=== PATIENT | female | born 1940 | race Caucasian/White ===

== ENCOUNTER 2019-04-15 10:04 | Outpatient (CLI) | payer MEDICARE ==
[~2019-04-15 10:04] MED LIST: Gadobenate Dimeglumine 529 MG/1 ML (20ML VIAL) ONE
--- NOTE | 2019-04-15 16:34 | MRI ---
MRI BRAIN WITH AND WITHOUT CONTRAST: DATE: 04/15/19 HISTORY: 78-year-old female with persistent headache and dizziness. TECHNIQUE: Multiple sequences obtained in axial, sagittal, and coronal planes; pre and post IV injection of gado linium-based contrast agent: 18 mL MultiHance. FINDINGS: The ventricles are normal in size and configuration. There is no restricted diffusion, abnormal intr aaxial enhancement, mass, midline shift or any other mass effect, recent intraaxial hemorrhage, or ex traaxial fluid collection. There is a mild-moderate degree of T2-hyperintensities in the cerebral whi te matter consistent with chronic ischemic white matter changes due to microvascular atherosclerosis, not unusual for age. IMPRESSION: 1. Mild-moderate chronic ischemic white matter changes. 2. Otherwise negative. jn[] POS: [facility]
== END 2019-04-15 10:05 | disposition home or self-care (01) ==
LOC: SCSMRI 10:04
PROVIDERS: ATTEND Family Medicine
DX: R51 Headache (principal)
CPT/HCPCS: 70553; 82565; A9577

== ENCOUNTER 2019-06-15 13:17 | Outpatient (CLI) | payer MEDICARE ==
--- NOTE | 2019-06-15 14:16 | MMO ---
Bilateral MAMMO Bilat Screen [facility]. CLINICAL HISTORY: Patient is 79 years old and is seen for screening. The patient has no family history of breast cancer. The patient has no personal history of cancer. VIEWS: The views performed were: bilateral craniocaudal with tomosynthesis and bilateral mediolateral oblique with tomosynthesis. FILMS COMPARED: The present examination has been compared to prior imaging studies performed at [facility] on 04/21/2013, and at [facility] on 12/24/2016. This study has been interpreted with the assistance of computer-aided detection. MAMMOGRAM FINDINGS: There are scattered fibroglandular densities. There are stable benign appearing calcifications seen in both breasts. There are also vascular calcifications. There are no suspicious masses, suspicious calcifications, or new areas of architectural distortion. IMPRESSION: THERE IS NO MAMMOGRAPHIC EVIDENCE OF MALIGNANCY. A ROUTINE FOLLOW-UP MAMMOGRAM IN 1 YEAR IS RECOMMENDED. THE RESULTS OF THIS EXAM WERE SENT TO THE PATIENT. ACR BI-RADS Category 2 - Benign finding MAMMOGRAPHY NOTE: 1. A negative mammogram report should not delay a biopsy if a dominant of clinically suspicious mass is present. 2. Approximately 10% to 15% of breast cancers are not detected by mammography. 3. Adenosis and dense breasts may obscure an underlying neoplasm. Reported by: PERLA SHERMAN MD Electonically Signed: [id number]
== END 2019-06-15 13:18 | disposition home or self-care (01) ==
LOC: BICMAMMO 13:17
PROVIDERS: ATTEND Family Medicine
DX: Z12.31 Encounter for screening mammogram for malignant neoplasm of breast (principal)
CPT/HCPCS: 77063; 77067

== ENCOUNTER 2019-09-20 12:40 | Outpatient (CLI) | payer MEDICARE ==
--- NOTE | 2019-09-20 14:22 | RAD ---
2 VIEW CHEST: Date: 09/20/2019 INDICATION: Cough. COMPARISON: 03/12/17. FINDINGS: The lungs appear clear of infiltrate. There are increased interstitial markings which appear stable. There is a nodular density in the left mid lung and a nodular density in the left upper lung which ap pear stable. Mild flattening of the hemidiaphragms is a stable finding. Heart size upper normal and s table. Postop sternotomy changes again noted. Osseous structures are unremarkable and stable. IMPRESSION: No acute process. Stable chest findings when compared to prior study. POS: [facility]
== END 2019-09-20 12:41 | disposition home or self-care (01) ==
LOC: RAD 12:40
PROVIDERS: ATTEND Nurse Practitioner Family
DX: R05 Cough (principal)
CPT/HCPCS: 71046

== ENCOUNTER 2019-09-21 07:33 | Inpatient (IN) | payer MEDICARE ==
[2019-09-21 07:59] LABS: #Basophils 0.1 thou/uL (0.0-0.2); #Eosinphils 0.4 thou/uL (0.0-0.7); #Lymphocytes 2.7 thou/uL (1.20-3.40); #Monocytes 1.4 thou/uL (0.11-0.59); #Neutrophils 6.5 thou/uL (1.40-6.50); %Basophils 0.8 % (0.0-1.0); %Eosinophils 3.8 % (0.0-10.0); %Lymphocytes 24.1 % (21.0-51.0); %Monocytes 12.4 % (0.0-10.0); %Neutrophils 58.9 % (42.0-75.0); Hemoglobin 13.3 g/dL (12.0-16.0); Mean Corpuscular HGB CONC 32.9 g/dL (32.0-36.0); Mean Corpuscular Hemoglobin 30.5 pg (27.0-31.0); Mean Corpuscular Volume 92.6 fL (78.0-98.0); Mean Platelet Volume 9.1 fL (7.4-10.4); Platelet Count 248 thou/uL (130-400); RBC Distribution Width 12.9 % (11.5-14.5); Red Blood Cell (RBC) Count 4.37 mill/uL (4.20-5.40)
--- NOTE | 2019-09-21 08:14 | RAD ---
EXAM: Single view of the chest HISTORY: Chest pain COMPARISON: 11/16/2013 FINDINGS: Single view of the chest shows an enlarged but stable cardiomediastinal silhouette. The pa tient is status post sternotomy. There is no evidence of consolidation, mass, or pleural effusion. The bones are unremarkable. IMPRESSION: No evidence of acute cardiopulmonary disease
[2019-09-21 08:23] LABS: ALT (SGPT) 10 U/L (8-55); AST (SGOT) 25 U/L (5-34); Alkaline Phosphatase 77 U/L (40-110); Anion Gap 14 mmol/L (10-20); BUN (Urea Nitrogen) 24 mg/dL (9.8-20.1); Bilirubin, Total 0.8 mg/dL (0.2-1.2); CK (CPK) 108 U/L (29-168); Calc. Creatinine Clearance 0 mL/min (70-130); Calcium 9.4 mg/dL (7.8-10.44); Carbon Dioxide 25 mmol/L (23-31); Chloride 106 mmol/L (98-107); Estimated GFR-MDRD 50; Globulin 3.6 g/dL (2.4-3.5); Glucose 188 mg/dL (83-110); Potassium 4.2 mmol/L (3.5-5.1); Protein, Total 7.6 g/dL (6.0-8.3); Sodium 141 mmol/L (136-145)
[2019-09-21] MEDS ORDERED: Nitroglycerin 2% Ointment 1 INCH/1 GM Packet ONE (09:51)
[2019-09-21] MEDS ORDERED: Aspirin Chewable 81 MG TAB ONE (09:51)
[2019-09-21] MEDS ORDERED: Enoxaparin Sodium 100 MG/ML SYRINGE ONE (10:33)
[2019-09-21 10:44] LABS: CKMB 3.7 ng/mL (0-6.6)
[2019-09-21] MEDS ORDERED: Enoxaparin Sodium 80 MG/0.8 ML SYRINGE ONE (10:49)
[2019-09-21 11:48] LABS: Troponin I 2.743 ng/mL (< 0.028)
[2019-09-21] MEDS ORDERED: Acetaminophen 650 MG Suppository PR PRN (14:48)
[2019-09-21] MEDS ORDERED: Morphine 2 MG/ML SYRINGE SLOW IVP PRN (14:48)
[2019-09-21] MEDS ORDERED: Ondansetron PF 4 MG/2 ML Vial IVP PRN (14:48)
[2019-09-21] MEDS ORDERED: Nitroglycerin 0.4 MG TAB (25 Tab Bottle) SL PRN (14:48)
[2019-09-21] MEDS ORDERED: Acetaminophen 325 MG TAB PO PRN (14:48)
[2019-09-21] MEDS ORDERED: Dextrose 5% in Water 1,000 ML IV PRN (14:51)
[2019-09-21] MEDS ORDERED: HumaLOG 300 UNITS/3 ML VIAL SC PRN (14:51)
[2019-09-21] MEDS ORDERED: Dextrose 50% Abboject 50 ML SYRINGE SLOW IVP PRN (14:51)
[2019-09-21 14:54] LABS: Troponin I 3.355 ng/mL (< 0.028)
--- NOTE | 2019-09-21 15:32 | HP ---
PRIMARY CARE PROVIDER: Lorna Matos MD CHIEF COMPLAINT: Chest pain. HISTORY OF PRESENT ILLNESS: Ms. García is a pleasant 79-year-old lady, who was seen at [facility] on September 21, 2019. She reports that towards the end of July, she was diagnosed with flu. She reports that her symptoms started three or four days prior to the diagnosis. She was treated with Tamiflu, but continued to have cough. She has also been having low energy levels. She reports that over the last week, she has had chest discomfort. She describes it as dull, heaviness across the chest, improved with nitrates, worse with exertion, not accompanied by nausea or lightheadedness. She reports that it radiated once to her back. She also reports shortness of breath on exertion and generalized weakness. She reports that she has not taken nitrates in 2 years prior to this episode. However, she found herself needing more nitrates as the days went by. Last night, she was woken up multiple times from sleep because of the chest discomfort. She was seen at her home performance laborer office yesterday. She had a chest x-ray done and was told that there was no pneumonia. She presented to the emergency room today because of the chest discomfort. REVIEW OF SYSTEMS: All systems were reviewed and found to be negative except for pertinent positives mentioned above. PAST MEDICAL HISTORY: Gastroesophageal reflux disease, diabetes mellitus, vertigo, dyslipidemia, and coronary artery disease. PAST SURGICAL HISTORY: PCI with coronary stents, coronary artery bypass graft, tubal ligation, cholecystectomy. PSYCHIATRIC HISTORY: Depression. FAMILY HISTORY: Significant for coronary artery disease in her father and brother. CODE STATUS: I discussed her code status. She is full code. SOCIAL HISTORY: The patient denies tobacco use, alcohol use, or recreational drug use. ALLERGIES: NO KNOWN DRUG ALLERGIES. CURRENT MEDICATIONS: 1. Januvia 100 mg daily. 2. Dicyclomine 20 mg daily as needed. 3. Amlodipine 5 mg daily. 4. Lisinopril 20 mg daily. 5. Metformin 500 mg 2 times a day. 6. Omeprazole 40 mg daily. 7. Aspirin 325 mg daily. PHYSICAL EXAMINATION: GENERAL: On examination, Ms. García is awake and alert, not in acute distress. VITAL SIGNS: Blood pressure is 126/80, pulse 84, respiratory rate 21, and oxygen saturation 100% on room air. She is afebrile. EYES: No scleral icterus, no conjunctival pallor. ENT: Moist mucosal membranes. No oropharyngeal erythema or exudates. NECK: Supple, nontender, trachea is midline. RESPIRATORY: Accessory muscles of breathing are not active. Chest wall movements are symmetric bilaterally. LUNGS: Clear to auscultation, without wheeze, rhonchi, or crepitations. CARDIOVASCULAR: S1 and S2 are heard, regular. Peripheral pulses palpable. ABDOMEN: Soft, nontender, bowel sounds are heard. NEUROLOGIC: Cranial nerves 2 through 12 are intact. MUSCULOSKELETAL: Power is 5/5 in all 4 extremities. SKIN: No rashes or subcutaneous nodules. LYMPHATIC: No cervical lymphadenopathy. PSYCHIATRIC: Normal mood, normal affect, the patient is oriented to person, place, and time. LABORATORY DATA: Ms. García' labs and investigations were reviewed. I reviewed her electrocardiogram, which shows normal sinus rhythm, lateral ST-segment depressions. I also reviewed her chest x-ray, which does not show any pulmonary infiltrates. She has 11,000 white cells, normal hemoglobin, normal platelet count, normal electrolytes, elevated blood urea nitrogen of 24, normal creatinine, and unremarkable LFTs. Troponin I is elevated at 2.743. BNP is elevated at 428. ASSESSMENT AND PLAN: Ms. García is a pleasant 79-year-old lady, who was seen at [facility] on September 21, 2019. Her problem list includes: 1. Iqu-ES-nvgvtdimg myocardial infarction: Ms. García is presenting with crt-XB-fsejyzrqw myocardial infarction. She will be admitted to the hospital for further management. Emergency room physician has discussed her case with home performance laborer on-call and she has been administered low-molecular weight heparin. I will admit her to tool filer. We will also check 2D echocardiogram to rule out viral cardiomyopathy as an etiology for elevated troponin, given her recent flu-like illness. However, her chest pain and its characteristics point more towards ischemic etiology. 2. Diabetes mellitus type 2: I will start her on Accu-Cheks and insulin sliding scale. We will continue her home medications once they are clarified. 3. Hypertension: We will resume home medications once clarified, we will monitor vital signs and titrate antihypertensives as needed. 4. Gastroesophageal reflux disease: Stable, continue PPI. 5. Dyslipidemia: The patient reports that she cannot tolerate statins. LEVEL OF RISK: High. LEVEL OF COMPLEXITY: High. Many thanks for allowing me to participate in your patient's care. Please feel free to contact me with any questions or concerns. Job ID: [id number]
[2019-09-21] MEDS ORDERED: Communication Order-Pharmacy FS SCH (17:00)
[2019-09-21 17:28] VITALS: BMI 34.1
[2019-09-21] MEDS ORDERED: Clopidogrel Bisulfate 300 MG TAB PO SCH (18:00)
[2019-09-21 18:24] LABS: Troponin I 3.491 ng/mL (< 0.028)
[2019-09-21] MEDS: Nitroglycerin 2% Ointment 1 INCH/1 GM Packet TOP SCH (20:00)
[2019-09-21] MEDS ORDERED: Enoxaparin Sodium 40 MG/0.4 ML SYRINGE SC SCH (21:00)
[2019-09-21] MEDS ORDERED: Enoxaparin Sodium 80 MG/0.8 ML SYRINGE SC SCH (21:00)
[2019-09-22 02:34] LABS: Critical Call Chem Troponin I RESULT DECREASING
[2019-09-22 02:51] LABS: CKMB 3.3 ng/mL (0-6.6)
[2019-09-22 04:19] LABS: #Basophils 0.1 thou/uL (0.0-0.2); #Eosinphils 0.4 thou/uL (0.0-0.7); #Lymphocytes 2.3 thou/uL (1.20-3.40); #Monocytes 1.2 thou/uL (0.11-0.59); #Neutrophils 4.8 thou/uL (1.40-6.50); %Basophils 1.1 % (0.0-1.0); %Eosinophils 4.8 % (0.0-10.0); %Lymphocytes 26.1 % (21.0-51.0); %Monocytes 13.6 % (0.0-10.0); %Neutrophils 54.4 % (42.0-75.0); Hemoglobin 11.6 g/dL (12.0-16.0); Mean Corpuscular Hemoglobin 29.6 pg (27.0-31.0); Mean Corpuscular Volume 92.5 fL (78.0-98.0); Mean Platelet Volume 9.6 fL (7.4-10.4); Platelet Count 219 thou/uL (130-400); RBC Distribution Width 12.8 % (11.5-14.5); Red Blood Cell (RBC) Count 3.93 mill/uL (4.20-5.40); White Blood Cell (WBC) Count 8.8 thou/uL (4.8-10.8)
[2019-09-22 04:39] LABS: Anion Gap 14 mmol/L (10-20); BUN (Urea Nitrogen) 19 mg/dL (9.8-20.1); Calc. Creatinine Clearance 60 mL/min (70-130); Calcium 8.7 mg/dL (7.8-10.44); Carbon Dioxide 20 mmol/L (23-31); Cardiac Risk 5.4 (Less than 4.5); Chloride 110 mmol/L (98-107); Cholesterol 190 mg/dl (< 200 Desired); Estimated GFR-MDRD 55; Glucose 148 mg/dL (83-110); HDL Cholesterol 35 mg/dL (>60 Neg Risk); LDL Cholesterol, Calculated 103 mg/dL; Potassium 4.1 mmol/L (3.5-5.1); Sodium 140 mmol/L (136-145); Triglycerides 258 mg/dL (Less than 150)
[2019-09-22 04:45] LABS: Critical Call Chem Troponin I RESULT DECREASING; Troponin I 2.578 ng/mL (< 0.028)
[2019-09-22] MEDS: Nitroglycerin 2% Ointment 1 INCH/1 GM Packet TOP SCH ×2 (05:48→20:12)
--- NOTE | 2019-09-22 07:39 | CON ---
DATE OF CONSULTATION: INDICATION FOR CONSULTATION: This is an 79-year-old female who has a history of known coronary artery disease, had undergone angioplasty with stent placements, also underwent bypass surgery in 2014. She had a PHAN to the left anterior descending artery. She also had saphenous vein graft to the obtuse marginal branch of the left circumflex, the diagonal branch, and the posterior descending artery. At the time of the cardiac catheterization, all the vessels were deemed to be less than 2 mm in diameter. She was seen in the office yesterday by Dr. Euceda's nurse practitioner. She apparently had been doing relatively well, but did develop a flu, which right around [place], had been getting somewhat better, but still had been having increasing amounts of coughing and had presented yesterday evening, recently in the last 1-1/2 weeks, she started having some chest pressure. She has been taking some nitroglycerin, but mainly had relief of the chest discomfort. Around 1:00 this morning, actually she got up to go to the bathroom or do something and then noticed she has some chest pain. She took a nitroglycerin, and then I believe actually at about 3:00 this morning, had more chest pain, took 2 nitroglycerin. The pain resolved. She went back to sleep and around 5:30 this morning, she had more pain, which she took more nitroglycerin and aspirin and then felt somewhat better, but then presented to the emergency room, where her cardiac enzymes were positive for idc-UB-lxmxjso elevation myocardial infarction. Her MB was 3.7, but troponin I has gone from 2.7 to 3.3, and she still has some mild discomfort. EKG is essentially unchanged from EKG that was done yesterday in the office. She does have T-wave inversions in the lateral leads, most likely compatible with lateral wall ischemia. She denies any significant palpitations or any other significant abnormalities associated with the heart at this time. In the emergency room, a nitroglycerin paste was placed. She was also given Lovenox. She has not eaten since yesterday, she said; otherwise, appears to be comfortable. She said she has more abdominal discomfort, which she thinks may be due to being that she needs to eat, but otherwise she still has on the scale of 10, 1/10 chest discomfort. PAST MEDICAL HISTORY: Significant for the coronary artery disease, diabetes, and dyslipidemia. She has a history of psoriasis. She has had some hypothyroidism and gastroesophageal reflux disease. She has had bilateral tubal ligation. She had a recent flu. SOCIAL HISTORY: She does not smoke. She has no significant alcohol or tobacco use. FAMILY HISTORY: Noncontributory at this time, but there is a history of coronary artery disease. Her father had a myocardial infarction. ALLERGIES: SHE IS INTOLERANT TO STATINS. SHE SAYS IT CAUSES HER FEET TO HURT. MEDICATIONS: Prior to admission included; 1. Aleve. 2. Nitroglycerin p.r.n. 3. Amlodipine 5 mg once a day. 4. Omeprazole 40 mg once a day. 5. Metformin 500 twice a day. 6. Lisinopril 20 mg a day. 7. Allopurinol 100 mg a day. 8. Iron tablets 28 mg once a day. 9. Vitamin D3, 1000 units one tablet once a day. 10. B complex vitamins. 11. Aspirin 81 mg a day. She does not always take her aspirin. 12. Dicyclomine HCl 20 mg 3 times a day. 13. Januvia 100 mg once a day. 14. She also recently was started back on her Ranexa. She said she has stopped taking the Ranexa about more than 6 months ago, and a new prescription was given to her yesterday; however, she did not get that prescription filled yet. REVIEW OF SYSTEMS: A 12-point review of systems was unremarkable except for what is noted in the history of present illness. PHYSICAL EXAMINATION: GENERAL: Reveals a well-developed, well-nourished female, who is in no acute distress at this time. VITAL SIGNS: Stable. Blood pressure was 104/64. She is afebrile. Heart rate is in the 70s and shows a sinus rhythm, respiratory rate is 18. HEENT: Unremarkable. NECK: Carotid pulses are present. I did not hear any bruits. CHEST: Clear to auscultation without rales, rhonchi, or wheezing. She has a well-healed midline incision after median sternotomy. CARDIOVASCULAR: She has a regular rate and rhythm. Heart sounds are somewhat distant, but I did not hear any gross murmurs, heaves, thrills, bruits, or rubs. ABDOMEN: Obese. Positive bowel sounds are present. No organomegaly or masses were noted. EXTREMITIES: Femoral pulses were not palpable, but she does have mild popliteal pulses. She has right pedal pulses present and she has decreased pulses on the left foot. She has a well-healed surgical incision after the saphenous vein graft retrieval in the left lower extremity. NEUROLOGICAL: She appears to be fully intact. LABORATORY DATA: As noted above for the troponin I. Her potassium was 4.2, sodium 141, BUN was 24, creatinine of 1.05, and the blood sugar was 188. BUN was 24 and the creatinine was 1.05. WBC is 11, hemoglobin 13 with a hematocrit of 40.5. Her platelet count was 248,000. Her MB was 3.7 with a BNP of 428. IMPRESSION: At this time, impression is; 1. Fri-IO-bgdnhko elevation myocardial infarction, most likely involving the lateral area. She has undergone bypass surgery in the past. She has very small vessels. We will try to stabilize the patient at this time. We will continue to trend the enzymes. She will most likely undergo a cardiac catheterization tomorrow. She may have had problems with her saphenous vein grafts. If she has had progression of her [place] vessels, unlikely we will be able to do anything due to the very small [place] vessels of less than 2 mm in diameter. Should she have any further elevation of the enzymes or should she become more unstable tonight, she may need to have urgent cardiac catheterization later this evening. 2. Her other diagnosis such as diabetes must be dealt with by the Primary Care Service. 3. Her hypertension, which is under good control will be also dealt with by the Primary Service unless it becomes significantly elevated, then we will also change her medications. 4. Hypercholesterolemia. She is unable to take statin medications. We will try to discuss with her about taking the newer medications, which were injectables such as Praluent or one of the other medications associated with this. Perhaps, she can do the injectable form since she is unable to tolerate the statins. I do not have a recent cholesterol level and now we will need to determine whether or not this has actually been checked in the recent past. Actually, her last LDL level that of record is in February 2019. The LDL level was 124. Certainly, with a history of diabetes and coronary artery disease, we hope that the LDL level would be less than 70. Job ID: [id number]
[2019-09-22] MEDS ORDERED: Sodium Chloride 0.9% 1,000 ML IV SCH (08:00)
[2019-09-22] MEDS ORDERED: Diazepam 5 MG TAB PO SCH (08:00)
[2019-09-22] MEDS ORDERED: Lidocaine 1% (PF) 30 ML VIAL ONE ×2 (08:01→10:51)
[2019-09-22] MEDS ORDERED: Heparin (Artline) 0 ML ONE (08:01)
[2019-09-22] MEDS: Aspirin 325 mg Enteric Coated Tablet PO SCH (08:35)
--- NOTE | 2019-09-22 08:38 | PRG ---
DATE OF SERVICE: 09/22/2019 SUBJECTIVE: Ms. García continues to have anginal chest pain. The patient suffered a zyt-PS-zyxusnudh myocardial infarction yesterday. Just with minimal exertion in the bed, she started having increasing angina and had to take nitroglycerin. OBJECTIVE: VITAL SIGNS: Her blood pressure 131/68, pulse 94 and regular. On feeling her pulses, the femoral pulses are diminished bilaterally. I do not feel popliteal or pedal pulses. ASSESSMENT: 1. Diffuse atherosclerosis based on previous cardiac catheterization and bypass surgery. 2. Previous bypass surgery. 3. Status post bsg-SW-kfpdyxqyx myocardial infarction. 4. Peripheral vascular disease. PLAN: Discussed the options with the patient. It is unclear whether there be anything further feasible in the laboratory inspector. She has diffusely diseased distal vessels. However, she continues to have anginal pain. She also has peripheral vascular disease. The risk of complications are increased in this patient. 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 At first, discussed cardiac catheterization. Discussed increased risk of vascular complication. Discussed risk of stroke, heart attack, iodine allergy, loss of blood supply to the leg or kidney. Discussed that the options may be limited and poor. She understands, but she wishes to proceed to catheterization to see what her options may be. The patient and family understand increased risk. Job ID: [id number]
[2019-09-22] MEDS ORDERED: Iopamidol 370 76% 100 ML VIAL ONE (08:56)
[2019-09-22] MEDS ORDERED: Alogliptin 25 MG TAB PO SCH (09:00)
[2019-09-22] MEDS ORDERED: Aspirin 325 mg Enteric Coated Tablet PO SCH (09:00)
[2019-09-22] MEDS ORDERED: FLU VACC TS2019-20(65YR UP)/PF 180 MCG/0.5 ML SYRINGE IM ONE (09:00)
[2019-09-22] MEDS ORDERED: Heparin (Artline) 1,000 ML ONE (10:50)
[2019-09-22] MEDS ORDERED: Midazolam HCl 2 mg/2 ml Vial ONE (12:12)
[2019-09-22] MEDS ORDERED: Fentanyl 100 MCG/2 ML VIAL ONE (12:12)
[2019-09-22] MEDS ORDERED: Sodium Chloride 0.9% 200 ML IV PRN (13:06)
[2019-09-22] MEDS ORDERED: Acetaminophen/Codeine 30-300mg Tablet PO PRN (13:06)
[2019-09-22] MEDS ORDERED: Dicyclomine 20 MG TAB PO PRN (16:06)
[2019-09-22] MEDS ORDERED: Carvedilol 3.125 MG TAB PO SCH (17:45)
--- NOTE | 2019-09-22 19:04 | PDOC.HOSPP ---
- Subjective Encounter Date: 09/22/19 Encounter Time: 09:40 Subjective: Pt seen for followup re: NSTEMI. Had chest pain earlier today, awaiting cath. - Objective Vital Signs & Weight: Vital Signs (12 hours) Temp Pulse Resp BP Pulse Ox 09/22/19 15:46 98.5 F 79 17 132/69 95 09/22/19 11:18 97.5 F L 86 14 146/70 H 95 09/22/19 07:55 98.4 F 85 16 144/88 H 94 L Weight Weight 184 lb 1.6 oz I&O: 09/21/19 09/22/19 09/23/19 06:59 06:59 06:59 Intake Total 940 Output Total 700 Balance 240 Result Diagrams: 09/22/19 03:53 09/22/19 03:53 Additional Labs: Accuchecks 09/22/19 09/22/19 09/22/19 16:45 10:43 05:17 POC Glucose 134 H 145 H 155 H 09/21/19 20:37 POC Glucose 165 H Labs and MARs reviewed by me EKG Reviewed by me: Yes (Tele: NSR) Hospitalist ROS - Review of Systems Constitutional: denies: fever, chills, sweats, weakness, malaise Cardiovascular: reports: chest pain. denies: palpitations, orthopnea, paroxysmal noc. dyspnea, edema, light headedness Gastrointestinal: denies: nausea, vomiting, abdominal pain, diarrhea, constipation, melena, hematochezia Genitourinary: denies: dysuria, frequency, incontinence, hematuria, retention Musculoskeletal: denies: neck pain, shoulder pain, arm pain, back pain, hand pain, leg pain, foot pain - Medication Medications: Active Medications Generic Name Dose Route Start Last Admin Trade Name Freq PRN Reason Stop Dose Admin Alogliptin Benzoate 25 mg 09/22/19 09:00 09/22/19 08:34 Alogliptin PO Not Given DAILY [facility] Aspirin 81 mg 09/22/19 09:00 09/22/19 08:35 Ecotrin PO Not Given DAILY [facility] Carvedilol 3.125 mg 09/22/19 17:45 09/22/19 18:06 Coreg PO 09/22/19 19:45 3.125 mg NOW AMOS Administration Nitroglycerin 0.4 mg 09/21/19 14:48 09/22/19 01:30 Nitrostat SL 1 tab Q5MIN PRN Administration Chest Pain Nitroglycerin 1 inch 09/21/19 21:00 09/22/19 05:48 Nitro-Bid 2% Ointment TOP 1 inch BID AMOS Administration Ranolazine 500 mg 09/21/19 21:00 09/22/19 05:48 Ranexa PO 500 mg BID AMOS Administration - Exam General - other findings: Obese Eye: anicteric sclera ENT: normocephalic atraumatic Neck: supple, symmetric, no JVD, no thyromegaly Heart: RRR, no gallops, no rubs, normal peripheral pulses Respiratory: CTAB, no wheezes, no rales, no ronchi, normal chest expansion Gastrointestinal: soft, non-tender, normal bowel sounds, no palpable masses Skin: no rashes Psychiatric: normal affect, normal behavior, A&O x 3 Hosp A/P (1) NSTEMI (non-ST elevated myocardial infarction) Code(s): I21.4 - NON-ST ELEVATION (NSTEMI) MYOCARDIAL INFARCTION Status: Acute (2) DM2 (diabetes mellitus, type 2) Status: Chronic (3) HTN (hypertension) Code(s): I10 - ESSENTIAL (PRIMARY) HYPERTENSION Status: Chronic (4) GERD (gastroesophageal reflux disease) Code(s): K21.9 - GASTRO-ESOPHAGEAL REFLUX DISEASE WITHOUT ESOPHAGITIS Status: Chronic (5) Dyslipidemia Code(s): E78.5 - HYPERLIPIDEMIA, UNSPECIFIED Status: Chronic - Plan plan discussed w/ family Await cath. Reasonable control of blood sugars. Monitor vital signs and titrate antihypertensives as needed. Continue Ranexa. Pt reportedly does not tolerate statins.
[2019-09-23 04:34] LABS: #Basophils 0.1 thou/uL (0.0-0.2); #Eosinphils 0.3 thou/uL (0.0-0.7); #Lymphocytes 2.2 thou/uL (1.20-3.40); #Monocytes 1.4 thou/uL (0.11-0.59); #Neutrophils 6.8 thou/uL (1.40-6.50); %Basophils 0.6 % (0.0-1.0); %Eosinophils 2.7 % (0.0-10.0); %Lymphocytes 20.6 % (21.0-51.0); %Monocytes 13.1 % (0.0-10.0); %Neutrophils 62.9 % (42.0-75.0); Hemoglobin 13.2 g/dL (12.0-16.0); Mean Corpuscular HGB CONC 33.6 g/dL (32.0-36.0); Mean Corpuscular Hemoglobin 30.6 pg (27.0-31.0); Mean Corpuscular Volume 91.3 fL (78.0-98.0); Mean Platelet Volume 9.5 fL (7.4-10.4); Platelet Count 241 thou/uL (130-400); RBC Distribution Width 12.7 % (11.5-14.5); Red Blood Cell (RBC) Count 4.31 mill/uL (4.20-5.40); White Blood Cell (WBC) Count 10.9 thou/uL (4.8-10.8)
[2019-09-23 04:55] LABS: Anion Gap 13 mmol/L (10-20); BUN (Urea Nitrogen) 15 mg/dL (9.8-20.1); Calc. Creatinine Clearance 58 mL/min (70-130); Calcium 8.6 mg/dL (7.8-10.44); Carbon Dioxide 20 mmol/L (23-31); Chloride 108 mmol/L (98-107); Estimated GFR-MDRD 53; Glucose 158 mg/dL (83-110); Potassium 4.7 mmol/L (3.5-5.1); Sodium 136 mmol/L (136-145)
[2019-09-23 05:16] LABS: Critical Call Chem Troponin I RESULT DECREASING; Troponin I 2.366 ng/mL (< 0.028)
[2019-09-23] MEDS ORDERED: Carvedilol 3.125 MG TAB PO SCH ×2 (08:00)
--- NOTE | 2019-09-23 08:38 | PRG ---
DATE OF SERVICE: 09/23/2019 SUBJECTIVE: Ms. García is doing better, not having chest pain this morning. OBJECTIVE: VITAL SIGNS: Blood pressure 112/58; pulse 90, it is regular. LUNGS: Clear. CARDIAC: Normal S1. Normal S2. ABDOMEN: Soft and nontender. ASSESSMENT: 1. Severe diffuse atherosclerotic heart disease. 2. Depressed left ventricular function, ejection fraction of 40%. 3. Diabetes. 4. Obesity. 5. Hypercholesterolemia. PLAN: 1. I would recommend changing her from it has been shown to reduce mortality in patients with diabetes with ejection fraction below 45%. This medicine is not yet available in the hospital pharmacy, but at the time of discharge that would improve her prognosis. 2. We will stop amlodipine. 3. Increase carvedilol. 4. Nitrates. 5. Aspirin and Plavix. 6. Start low-dose statin. 7. We will try to arrange for outpatient injectable medicine for her diabetes. Long-term prognosis is poor. Hopefully, medication therapy, which could be aggressive would improve her prognosis. Job ID: [id number]
[2019-09-23] MEDS ORDERED: Amlodipine 5 MG TAB PO SCH (09:00)
[2019-09-23] MEDS: Carvedilol 6.25 MG TAB PO SCH ×2 (09:22→17:03)
[2019-09-23] MEDS: Aspirin 325 mg Enteric Coated Tablet PO SCH ×2 (09:23→09:57)
[2019-09-23] MEDS: Alogliptin 25 MG TAB PO SCH (09:23)
[2019-09-23] MEDS: Clopidogrel Bisulfate 75 MG TAB PO SCH (09:24)
[2019-09-23] MEDS: Isosorbide Mononitrate (ER) 30 MG TAB PO SCH (09:24)
[2019-09-23] MEDS: Multivitamin W/ Minerals 1 TAB PO SCH (09:25)
[2019-09-23] MEDS ORDERED: Aspirin 81 mg Enteric Coated Tablet PO SCH (10:00)
[2019-09-23] MEDS: Lisinopril 20 MG TAB PO SCH (10:41)
--- NOTE | 2019-09-23 18:35 | PDOC.HOSPP ---
- Subjective Encounter Date: 09/23/19 Encounter Time: 08:20 Subjective: Pt seen for followup re: NSTEMI. Feels better. c/o cough with sputum, sputum color changed today to greenish. - Objective Vital Signs & Weight: Vital Signs (12 hours) Temp Pulse Resp BP BP Pulse Ox 09/23/19 17:03 127/59 L 09/23/19 16:00 99 F 79 20 93 L 09/23/19 15:45 118/74 09/23/19 11:34 98.6 F 82 20 101/58 L 93 L 09/23/19 10:41 105/65 09/23/19 09:22 126/69 09/23/19 08:10 98 F 87 18 113/61 95 09/23/19 08:00 93 L Weight Weight 183 lb 1.6 oz I&O: 09/22/19 09/23/19 09/24/19 06:59 06:59 06:59 Intake Total 940 360 Output Total 900 300 Balance 40 60 Result Diagrams: 09/23/19 04:05 09/23/19 04:05 Additional Labs: Accuchecks 09/23/19 09/23/19 09/23/19 16:57 13:32 10:48 POC Glucose 117 H 145 H 230 H 09/23/19 09/22/19 06:05 20:14 POC Glucose 154 H 130 H Labs and MARs reviewed by me EKG Reviewed by me: Yes (Tele: NSR) Hospitalist ROS - Review of Systems ENT: reports: throat pain Respiratory: reports: cough, sputum. denies: dry, shortness of breath, hemoptysis, SOB with excertion, pleuritic pain, wheezing Cardiovascular: reports: chest pain. denies: palpitations, orthopnea, paroxysmal noc. dyspnea, edema, light headedness Gastrointestinal: denies: nausea, vomiting, abdominal pain, diarrhea, constipation, melena, hematochezia Genitourinary: denies: dysuria, frequency, incontinence, hematuria, retention Musculoskeletal: denies: neck pain, shoulder pain, arm pain, back pain, hand pain, leg pain, foot pain - Medication Medications: Active Medications Generic Name Dose Route Start Last Admin Trade Name Freq PRN Reason Stop Dose Admin Alogliptin Benzoate 25 mg 09/23/19 09:00 09/23/19 09:23 Alogliptin PO 25 mg DAILY AMOS Administration Carvedilol 6.25 mg 09/23/19 08:00 09/23/19 17:03 Coreg PO 6.25 mg BID-WM AMOS Administration Clopidogrel Bisulfate 75 mg 09/23/19 09:00 09/23/19 09:24 Plavix PO 75 mg DAILY AMOS Administration Iron/Minerals/Multivitamins 1 tab 09/23/19 09:00 09/23/19 09:25 Theragran M PO 1 tab DAILY AMOS Administration Isosorbide Mononitrate 30 mg 09/23/19 09:00 09/23/19 09:24 Imdur Er PO 30 mg DAILY AMOS Administration Lisinopril 20 mg 09/23/19 09:00 09/23/19 10:41 Zestril PO 20 mg DAILY AMOS Administration Pantoprazole Sodium 40 mg 09/23/19 09:00 09/23/19 09:25 Protonix PO 40 mg DAILY AMOS Administration Ranolazine 500 mg 09/21/19 21:00 09/23/19 09:25 Ranexa PO 500 mg BID AMOS Administration Sodium Chloride 10 ml 09/23/19 09:00 09/23/19 10:34 Flush - Normal Saline IVF 10 ml Q12HR AMOS Administration - Exam General - other findings: Obese Eye: anicteric sclera ENT: moist mucosa ENT - other findings: pharyngeal erythema, no exudates Neck: supple, symmetric, no thyromegaly, no lymphadenopathy Heart: RRR, no gallops, no rubs, normal peripheral pulses Respiratory: CTAB, no wheezes, no rales, no ronchi, normal chest expansion Gastrointestinal: soft, non-tender, non-distended, normal bowel sounds Extremities: no cyanosis Skin: no rashes Psychiatric: normal affect, normal behavior, A&O x 3 Hosp A/P (1) NSTEMI (non-ST elevated myocardial infarction) Code(s): I21.4 - NON-ST ELEVATION (NSTEMI) MYOCARDIAL INFARCTION Status: Acute (2) Bronchitis Code(s): J40 - BRONCHITIS, NOT SPECIFIED ACUTE OR CHRONIC Status: Acute (3) DM2 (diabetes mellitus, type 2) Status: Chronic (4) HTN (hypertension) Code(s): I10 - ESSENTIAL (PRIMARY) HYPERTENSION Status: Chronic (5) GERD (gastroesophageal reflux disease) Code(s): K21.9 - GASTRO-ESOPHAGEAL REFLUX DISEASE WITHOUT ESOPHAGITIS Status: Chronic (6) Dyslipidemia Code(s): E78.5 - HYPERLIPIDEMIA, UNSPECIFIED Status: Chronic - Plan For medical management of CAD. Start cefdinir for acute beonchitis. Pt also has pharyngeal erythema (no exudates), start PRN cepastat. Continue accuchecks and insulin sliding scale. Monitor vital signs and titrate antihypertensives as needed. Continue Ranexa.
[2019-09-23] MEDS ORDERED: Cepastat Lozenges 1 LOZ PO PRN (18:37)
[2019-09-23] MEDS ORDERED: Cepastat Lozenges 1 LOZ PO SCH (18:45)
[2019-09-23] MEDS: Cefdinir 300 MG CAP PO SCH (20:45)
[2019-09-23] MEDS ORDERED: Rosuvastatin 5 MG TAB PO SCH (21:00)
[2019-09-24 04:47] LABS: #Basophils 0.1 thou/uL (0.0-0.2); #Eosinphils 0.4 thou/uL (0.0-0.7); #Lymphocytes 2.3 thou/uL (1.20-3.40); #Monocytes 1.7 thou/uL (0.11-0.59); #Neutrophils 7.1 thou/uL (1.40-6.50); %Basophils 0.8 % (0.0-1.0); %Eosinophils 3.5 % (0.0-10.0); %Lymphocytes 19.8 % (21.0-51.0); %Monocytes 14.3 % (0.0-10.0); %Neutrophils 61.7 % (42.0-75.0); Hemoglobin 11.9 g/dL (12.0-16.0); Mean Corpuscular HGB CONC 32.6 g/dL (32.0-36.0); Mean Corpuscular Hemoglobin 29.9 pg (27.0-31.0); Mean Corpuscular Volume 91.6 fL (78.0-98.0); Mean Platelet Volume 9.4 fL (7.4-10.4); Platelet Count 227 thou/uL (130-400); RBC Distribution Width 12.9 % (11.5-14.5); Red Blood Cell (RBC) Count 3.97 mill/uL (4.20-5.40); White Blood Cell (WBC) Count 11.6 thou/uL (4.8-10.8)
[2019-09-24 05:13] LABS: Anion Gap 13 mmol/L (10-20); BUN (Urea Nitrogen) 18 mg/dL (9.8-20.1); Calc. Creatinine Clearance 54 mL/min (70-130); Calcium 8.7 mg/dL (7.8-10.44); Carbon Dioxide 21 mmol/L (23-31); Chloride 107 mmol/L (98-107); Estimated GFR-MDRD 49; Glucose 160 mg/dL (83-110); Potassium 4.2 mmol/L (3.5-5.1); Sodium 137 mmol/L (136-145)
[2019-09-24] MEDS: Nitroglycerin 0.4 MG TAB (25 Tab Bottle) SL PRN ×2 (05:57→06:03)
[2019-09-24] MEDS: Lisinopril 20 MG TAB PO SCH (08:09)
[2019-09-24] MEDS: Alogliptin 25 MG TAB PO SCH (08:09)
[2019-09-24] MEDS: Clopidogrel Bisulfate 75 MG TAB PO SCH (08:09)
[2019-09-24] MEDS: Cefdinir 300 MG CAP PO SCH (08:09)
[2019-09-24] MEDS: Multivitamin W/ Minerals 1 TAB PO SCH (08:09)
[2019-09-24] MEDS: Isosorbide Mononitrate (ER) 30 MG TAB PO SCH (08:09)
[2019-09-24] MEDS: Carvedilol 6.25 MG TAB PO SCH (08:09)
[2019-09-24] MEDS ORDERED: Aspirin 81 mg Enteric Coated Tablet PO SCH (09:00)
--- NOTE | 2019-09-24 10:38 | PRG ---
DATE OF SERVICE: 09/24/2019 SUBJECTIVE: Ms. Gracía had some angina last night, required 2 nitroglycerins, it sound like there was quite a bit of time before she started having pain to where she got the nitroglycerin, but ultimately resolved with 2 nitroglycerins. Now complains of bilateral ankle and foot pain. She thinks it is gout. She has gout in the past. OBJECTIVE: VITAL SIGNS: Blood pressure 138/75, pulse 84 and regular. LUNGS: Clear. CARDIAC: Normal S1 and S2. ABDOMEN: Soft and nontender. EXTREMITIES: There is no edema. ASSESSMENT: 1. Coronary artery disease, diffuse atherosclerosis. Medical therapy is the only option. 2. Diabetes. 3. Previous intolerance to statin. 4. Possible gout. PLAN: 1. Give her a dose of colchicine. 2. If she is doing okay this afternoon, can release her home. We will try to help her get Repatha as an outpatient. Ideally, we would also get one of the SGLT2 inhibitors, which have been shown to be very beneficial in patients with coronary artery disease and heart failure. However, it looks like the cost may be a barrier to her. We will certainly try to help her at least get the Repatha. Job ID: [id number]
[2019-09-24 15:52] VITALS: BP 132/77; TEMP 97.8
--- NOTE | 2019-09-25 00:15 | DIS ---
DATE OF ADMISSION: 09/21/2019 DATE OF DISCHARGE: 09/24/2019 PRIMARY CARE PROVIDER: Lorna Matos MD DISCHARGE DIAGNOSES: 1. [id number] myocardial infarction. 2. Acute bronchitis. CONDITION OF PATIENT ON THE DAY OF DISCHARGE: Stable. I assessed Ms. García on the day of discharge. She reports feeling better. Vital signs are stable. S1 and S2 are heard, regular. Lungs are clear to auscultation bilaterally. POST-ACUTE CARE FOLLOWUP: With primary care provider in [address] Euceda in 2 weeks. DISCHARGE MEDICATIONS: 1. Bentyl 20 mg 3 times a day as needed. 2. Lisinopril 20 mg daily. 3. Multivitamins one tablet daily. 4. Omeprazole 40 mg daily. 5. Januvia 100 mg daily. 6. Aspirin 81 mg daily. 7. Coreg 6.25 mg 2 times a day. 8. Omnicef 300 mg 2 times a day for six days. 9. Plavix 75 mg daily. 10. Isosorbide mononitrate 30 mg daily. 11. Metformin 500 mg 2 times a day. 12. Ranexa 500 mg 2 times a day. 13. Crestor 5 mg at bedtime. 14. Nitroglycerin p.r.n. HOSPITAL COURSE: Ms. García is a pleasant 79-year-old lady, who was admitted to [facility] on September 21, 2019, for [id number] myocardial infarction. Please refer to my history and physical note dated September 21, 2019, for further details. She was seen by Cardiology Service. She underwent cardiac catheterization and was found to have diffuse atherosclerosis. Medical therapy is the only option. She has been started on low-dose statin. Cardiology Service also recommended that she try to be on Repatha and one of the SGLT2 inhibitors, which have been shown to be very beneficial in patients with coronary artery disease and heart failure. She was also found to have acute bronchitis and was treated with antibiotics. She is being discharged home in a stable condition. DISCHARGE DESTINATION: Home. DIET: Heart healthy, low-sodium and diabetic. ACTIVITY: As tolerated. TIME SPENT: Total amount of time spent coordinating this discharge: 32 minutes. Job ID: [id number]
--- NOTE | 2019-09-26 23:59 | EKG ---
Test Reason : STAT CP Blood Pressure : / mmHG Vent. Rate : 084 BPM Atrial Rate : 084 BPM P-R Int : 178 ms QRS Dur : 090 ms QT Int : 386 ms P-R-T Axes : 025 061 012 degrees QTc Int : 456 ms Normal sinus rhythm RSR' or QR pattern in V1 suggests right ventricular conduction delay Inferior-posterior infarct (cited on or before 21-SEP-2019) ACUTE WI / STEMI Consider right ventricular involvement in acute inferior infarct Abnormal ECG When compared with ECG of 21-SEP-2019 07:43, (Unconfirmed) RSR' pattern in V1 is now Present Confirmed by Parth PARTIDA ([id number]) on 09/26/2019 11:58:57 PM Referred By: Leslie PARKS Confirmed By:Parth PARTIDA
== END 2019-09-24 16:44 | disposition home or self-care (01) | DRG 282 ==
LOC: ERS 07:33 → ERHOLD 10:56 → 2NO 17:25
PROVIDERS: ADMIT Internal Medicine; ATTEND Internal Medicine
PROC: 4A023N7 Measurement of Cardiac Sampling and Pressure, Left Heart, Percutaneous Approach (ICD-10-PCS; principal; 2019-09-22)
PROC: B2111ZZ Fluoroscopy of Multiple Coronary Arteries using Low Osmolar Contrast (ICD-10-PCS; 2019-09-22)
PROC: B2181ZZ Fluoroscopy of Left Internal Mammary Bypass Graft using Low Osmolar Contrast (ICD-10-PCS; 2019-09-22)
PROC: B2131ZZ Fluoroscopy of Multiple Coronary Artery Bypass Grafts using Low Osmolar Contrast (ICD-10-PCS; 2019-09-22)
PROC: B2151ZZ Fluoroscopy of Left Heart using Low Osmolar Contrast (ICD-10-PCS; 2019-09-22)
PROC: 4A033BC Measurement of Arterial Pressure, Coronary, Percutaneous Approach (ICD-10-PCS; 2019-09-22)
PROC: 3E02340 Introduction of Influenza Vaccine into Muscle, Percutaneous Approach (ICD-10-PCS; 2019-09-22)
DX: I21.4 Non-ST elevation (NSTEMI) myocardial infarction (principal); K21.9 Gastro-esophageal reflux disease without esophagitis; Z23 Encounter for immunization; E78.00 Pure hypercholesterolemia, unspecified; F32.9 Major depressive disorder, single episode, unspecified; I10 Essential (primary) hypertension; E03.9 Hypothyroidism, unspecified; E11.51 Type 2 diabetes mellitus with diabetic peripheral angiopathy without gangrene; E66.9 Obesity, unspecified; J20.9 Acute bronchitis, unspecified; I25.110 Atherosclerotic heart disease of native coronary artery with unstable angina pectoris; Z95.1 Presence of aortocoronary bypass graft; Z98.51 Tubal ligation status; Z90.49 Acquired absence of other specified parts of digestive tract; Z79.84 Long term (current) use of oral hypoglycemic drugs; Z79.82 Long term (current) use of aspirin; Z79.899 Other long term (current) drug therapy; Z95.5 Presence of coronary angioplasty implant and graft; Z68.33 Body mass index [BMI] 33.0-33.9, adult
CPT/HCPCS: 36415; 36416; 71045; 71046; 76942; 80048; 80053; 80061; 82550; 82553; 83880; 84484; 85025; 93005; 93010; 93306; 93459; 94760; 96372; 99152; 99153; C1769; J0500; J1644; J1650; J2001; J2250; J3010; Q9967

== ENCOUNTER 2019-09-26 11:40 | Emergency (ER) | payer MEDICARE ==
[2019-09-26 13:14] LABS: #Eosinphils 0.2 thou/uL (0.0-0.7); #Lymphocytes 1.9 thou/uL (1.20-3.40); #Monocytes 1.3 thou/uL (0.11-0.59); #Neutrophils 7.5 thou/uL (1.40-6.50); %Basophils 0.4 % (0.0-1.0); %Monocytes 11.8 % (0.0-10.0); %Neutrophils 68.8 % (42.0-75.0); Hemoglobin 12.5 g/dL (12.0-16.0); Mean Corpuscular HGB CONC 32.7 g/dL (32.0-36.0); Mean Corpuscular Hemoglobin 29.8 pg (27.0-31.0); Mean Corpuscular Volume 91.1 fL (78.0-98.0); Mean Platelet Volume 9.2 fL (7.4-10.4); Platelet Count 224 thou/uL (130-400); RBC Distribution Width 12.7 % (11.5-14.5); Red Blood Cell (RBC) Count 4.18 mill/uL (4.20-5.40)
--- NOTE | 2019-09-26 13:26 | RAD ---
RADIOGRAPH CHEST 1 VIEW: DATE: 09/26/2019 HISTORY: 79-year-old female with cough and chest pain FINDINGS: The thoracic aorta is tortuous and ectatic. There is no evidence of airspace density, pulmonary edema , or pneumothorax. The lateral costophrenic angles are not effaced. Sternotomy wires. Prominent interstitial markings diffusely. No interval change since 09/21/2019. IMPRESSION: 1) No acute pulmonary findings. 2) ectasia of thoracic aorta. 3) previous open-heart surgery.
[2019-09-26 13:48] LABS: AST (SGOT) 20 U/L (5-34); Albumin 3.6 g/dL (3.4-4.8); Anion Gap 17 mmol/L (10-20); Bilirubin, Total 0.5 mg/dL (0.2-1.2); Calc. Creatinine Clearance 0 mL/min (70-130); Calcium 8.9 mg/dL (7.8-10.44); Carbon Dioxide 19 mmol/L (23-31); Chloride 107 mmol/L (98-107); Estimated GFR-MDRD 43; Globulin 3.1 g/dL (2.4-3.5); Glucose 124 mg/dL (83-110); Potassium 4.4 mmol/L (3.5-5.1); Protein, Total 6.7 g/dL (6.0-8.3); Sodium 139 mmol/L (136-145)
[2019-09-26 14:05] LABS: Bilirubin Negative (Negative); Blood, Urine Negative (Negative); Clarity Clear (Clear); Glucose, Urine (Dipstick) Normal (Negative); Leukocyte Negative Leu/uL (Negative); Nitrite Negative (Negative); Protein, Urine (Dipstick) 20 mg/dL (Neg-Trace); Urobilinogen Normal mg/dL (Less than 2)
[2019-09-26 14:16] LABS: Alkaline Phosphatase 61 U/L (40-110)
[2019-09-26 14:17] LABS: BUN (Urea Nitrogen) 21 mg/dL (9.8-20.1)
[2019-09-26 14:19] LABS: ALT (SGPT) 12 U/L (8-55); CK (CPK) 50 U/L (29-168); Lipase 47 U/L (8-78)
[2019-09-26 14:21] LABS: CKMB 1.4 ng/mL (0-6.6)
== END 2019-09-26 15:50 | disposition home or self-care (01) ==
LOC: ERS 11:40
DX: R61 Generalized hyperhidrosis (principal); K21.9 Gastro-esophageal reflux disease without esophagitis; E11.9 Type 2 diabetes mellitus without complications; E78.00 Pure hypercholesterolemia, unspecified; M10.9 Gout, unspecified; I25.2 Old myocardial infarction; F32.9 Major depressive disorder, single episode, unspecified
CPT/HCPCS: 36415; 51701; 71045; 80053; 81003; 82550; 82553; 83605; 83690; 84484; 85025; 87086; 93005; A4353